=== PATIENT | male | born 1950 | race Caucasian/White ===

== ENCOUNTER → 2017-01-24 | Outpatient (CLI) | payer MEDICARE ==
--- NOTE | 2017-01-25 08:19 | PCVCIMAG ---
APPROVED REPORT Exam: Stress Echocardiogram Indication: Chest pain , CAD Patient Location: Echo lab Stress Nurse: Lizbeth Lazo RN Room #: 2 Status: routine Ht: 6 ft 1 in HR: 68 bpm BP: 120/76 mmHg Rhythm: NSR Medical History Medical History: CAD non obstructive, Hyperlipidemia, PVCs Cardiac Risk Factors: Hyperlipidemia Pretest Chest Pain Characteristics: No chest pain Exercise History: Physically active Procedure The patient underwent an Exercise Stress Test using the Shawn Protocol. Blood pressure, heart rate, and EKG were monitored. An Echocardiogram was performed by personnel technician in four stages in quad fashion. At peak stress, four selected images were obtained and placed side by side with resting images for comparison. Stress Test Details Stress Test: Exercise stress testing was performed using a Shawn protocol. HR Resting HR: 68 bpmMax Heart Rate (APMHR): 153 bpm Max HR Achieved: 176 bpmTarget HR (85% APMHR): 130 bpm % of APMHR: 115 Recovery HR: 94 bpm HR response to stress: Normal HR response to stress BP Resting BP: 120/76 mmHg Max BP: 178/80 mmHg Recovery BP: 158/84 mmHg ECG Resting ECG: Sinus Rhythm Stress ECG: Sinus Rhythm ST Change: Downsloping ST depression, Ischemic Maximum ST Deviation: 2.6 mm Arrhythmia: Rare PVCs Recovery ECG: Sinus Rhythm Recovery ST Change: Normal Recovery ST Deviation: 0.4 mm Recovery Arrhythmia: None Clinical Reason for Termination: Maximal effort Stress Symptoms: none Exercise duration: 10 min 34 sec Highest Stage Achieved: Stage 4: 4.2 mph at 16% grade. Exercise capacity: 13.4 METs Overall Exercise Capacity for Age: Good Angina Score: None No complications. Stress ECG Conclusion The patient exercised according to the Shawn protocol for 10:34 mins; achieving a work level of 13.4 METS. The resting heart rate of 68 bpm evaristo to a maximal heart rate of 176 bpm. This value represents 115% of the maximal, age-predicted heart rate. The resting blood pressure of 120/76 mmHg, evaristo to a maximum of 178/80 mmHg. The exercise test was stopped due to fatigue. Da Silva Treadmill Score is -3.0 which is Moderate risk. Pre-Stress Echo The resting Echocardiogram showed normal left ventricular contractility with an estimated Ejection Fraction of about >55%. Normal wall motion in all segments on baseline images. Post-Stress Echo The stress Echocardiogram showed normal left ventricular contractility with an estimated Ejection Fraction of about 65%. The stress Echocardiogram demonstrated wall motion abnormality in the apical inferior wall. Clinical Abnormal ECG response to exercise. Conclusion Clinical Response: Non-ischemic Exercise Capacity: above average Stress ECG Response: Ischemic Stress Echo Images: Ischemic The ECG response to exercise was abnormal, suggestive for ischemia. The echocardiographic images reveal possible wall motion abnormalities in the apical inferior segment. <Conclusion> The ECG response to exercise was abnormal, suggestive for ischemia. The echocardiographic images reveal possible wall motion abnormalities in the apical inferior segment.
== END | disposition home or self-care (01) ==
LOC: PCVCIMAG 15:00
PROVIDERS: ATTEND Internal Medicine Cardiovascular Disease
DX: I25.10 Atherosclerotic heart disease of native coronary artery without angina pectoris (principal); I49.3 Ventricular premature depolarization; E78.00 Pure hypercholesterolemia, unspecified; Z79.82 Long term (current) use of aspirin; Z79.899 Other long term (current) drug therapy; Z87.891 Personal history of nicotine dependence
CPT/HCPCS: 93325; 93351; G0463

== ENCOUNTER → 2018-11-26 | Outpatient (CLI) | payer MEDICARE ==
--- NOTE | 2018-11-26 10:47 | PCVCIMAG ---
APPROVED REPORT Study performed: 11/26/2018 10:11:11 EXAM: Comprehensive 2D, Doppler, and color-flow Echocardiogram Patient Location: Echo lab Status: routine BSA: 2.01 HR: 68 bpmBP: 130/80 mmHg Rhythm: NSR Other Information Study Quality: Good Risk Factors: Cardiac Risk Factors: HTN, Hyperlipidemia Indications CAD PVC's 2D Dimensions IVSd: 10.95 (7-11mm)LVOT Diam: 20.84 (18-24mm) LVDd: 41.70 mm PWd: 9.01 (7-11mm)Ascending Ao: 34.56 (22-36mm) LVDs: 26.65 (25-40mm) Left Atrium: 37.62 (27-40mm) Aortic Root: 37.22 mm LV Single Plane 4CH: 75.60 % LV Single Plane 2CH: 66.95 % Biplane EF: 72.6 % Volumes Left Atrial Volume (Systole) Single Plane 4CH: 34.77 mLSingle Plane 2CH: 46.84 mL LA ESV Index: 21.00 mL/m2 Aortic Valve AoV Peak Flaquito.: 1.11 m/s AO Peak Gr.: 4.94 mmHgLVOT Max P.15 mmHg LVOT Max V: 1.02 m/s JERARDO Vmax: 3.13 cm2 Mitral Valve E/A Ratio: 1.3 MV Decel. Time: 249.38 ms MV E Max Flaquito.: 0.71 m/s MV A Flaquito.: 0.56 m/s IVRT: 117.65 ms TDI E/Lateral E': 7.10E/Medial E': 7.10 Medial E' Flaquito.: 0.10 m/s Lateral E' Flaquito.: 0.10 m/s Pulmonary Valve PV Peak Gr.: 2.18 mmHg Pulmonary Vein P Vein S: 0.68 m/sP Vein A: 0.49 m/s P Vein D: 0.39 m/sP Vein A Dur.: 86.5 msec P Vein S/D Ratio: 1.74 Left Ventricle The left ventricle is normal size. There is normal LV segmental wall motion. There is normal left ventricular wall thickness. Left ventricular systolic function is normal. The left ventricular ejection fraction is within the normal range. LVEF is 60-65%. Right Ventricle The right ventricle is normal size. The right ventricular systolic function is normal. Atria The left atrium size is normal. The right atrium size is normal. Aortic Valve The aortic valve is normal in structure. Mild aortic regurgitation. There is no aortic valvular stenosis. Mitral Valve The mitral valve is normal in structure. Mild mitral regurgitation. No evidence of mitral valve stenosis. Tricuspid Valve The tricuspid valve is normal in structure. There is no tricuspid valve regurgitation noted. Pulmonic Valve The pulmonary valve is normal in structure. There is no pulmonic valvular regurgitation. Great Vessels The aortic root is normal in size. IVC is normal in size and collapses >50% with inspiration. Pericardium There is no pericardial effusion. <Conclusion> The left ventricle is normal size. There is normal left ventricular wall thickness. Left ventricular systolic function is normal. The right ventricle is normal size. The left atrium size is normal. The right atrium size is normal. Mild aortic regurgitation. Mild mitral regurgitation. There is no tricuspid valve regurgitation noted.
== END | disposition home or self-care (01) ==
LOC: PCVCIMAG 10:01
PROVIDERS: ATTEND Internal Medicine Cardiovascular Disease
DX: I08.0 Rheumatic disorders of both mitral and aortic valves (principal); I25.10 Atherosclerotic heart disease of native coronary artery without angina pectoris; I49.3 Ventricular premature depolarization; E78.00 Pure hypercholesterolemia, unspecified; R07.9 Chest pain, unspecified; Z79.82 Long term (current) use of aspirin; Z79.899 Other long term (current) drug therapy; Z87.891 Personal history of nicotine dependence
CPT/HCPCS: 93005; 93306; G0463

== ENCOUNTER → 2019-04-08 | Outpatient (CLI) | payer MEDICARE | END | disposition home or self-care (01) | LOC: PCVCCLINIC 10:30 | PROVIDERS: ATTEND Internal Medicine Cardiovascular Disease | DX: I25.811 Atherosclerosis of native coronary artery of transplanted heart without angina pectoris (principal); E78.00 Pure hypercholesterolemia, unspecified; I49.3 Ventricular premature depolarization; Z79.82 Long term (current) use of aspirin; Z82.49 Family history of ischemic heart disease and other diseases of the circulatory system | CPT/HCPCS: 93005; G0463 ==